=== PATIENT | male | born 1975 | race African-American/Black ===

== ENCOUNTER 2022-10-05 06:05 | Emergency (ER) | payer OTHER ==
[~2022-10-05] VITALS: Ht 167.6 cm; Wt 75.7 kg
[2022-10-05 06:12] VITALS: BP 141/99
--- NOTE | 2022-10-05 06:15 | NUR ---
PT BIBA BLS ER BED 8
--- NOTE | 2022-10-05 06:20 | NUR ---
pt bedside with food. pt soaking feet in tepid water
--- NOTE | 2022-10-05 06:21 | NUR ---
Dr. Gomez examining patient.
--- NOTE | 2022-10-05 06:28 | NUR ---
47 Y/O M presents with bilateral foot pain. feet appear to be blackened and dry due to being homeless pt stated. pt immediately asked for food upon arrival and talks to self. pt denies any NVD, A&Ox2. PMH-unobtainable NKA
--- NOTE | 2022-10-05 06:35 | NUR ---
Dr. Gomez at bedside
[2022-10-05] MEDS ORDERED: NAPR-1704 PO (06:50)
[2022-10-05] MEDS ORDERED: IBUPROFEN 400 MG TAB PO ONE (06:50)
[2022-10-05] MEDS ORDERED: BACI-416 TP (07:31)
[2022-10-05] MEDS ORDERED: BACITRACIN OINT 500 UNITS/GM PKT TP ONE (07:50)
[2022-10-05 08:39] VITALS: BP 119/74
--- NOTE | 2022-10-05 08:41 | NUR ---
Patient discharged with v/s stable. Written and verbal after care instructions given and explained. Patient alert, oriented and verbalized understanding of instructions. Ambulatory with steady gait. All questions addressed prior to discharge. ID band removed. Patient advised to follow up with PMD. Rx of BACITRACIN ZINC, NAROXEN given. Opportunity to ask questions provided and answered.
--- NOTE | 2022-10-05 08:45 | NUR ---
The patient's care was reviewed and supervised by Carmen Nielsen, RN, RN.
== END 2022-10-05 08:59 | disposition home or self-care (01) ==
LOC: MED 06:05
DX: L84 Corns and callosities (principal); K14.5 Plicated tongue; F17.200 Nicotine dependence, unspecified, uncomplicated; Z72.89 Other problems related to lifestyle
CPT/HCPCS: 29515; 99283

== ENCOUNTER 2022-10-05 20:52 | Emergency (ER) | payer OTHER ==
[~2022-10-05] VITALS: Ht 172.7 cm; Wt 77.1 kg
[~2022-10-05 20:52] MED LIST: BACI-416 TP; NAPR-1704 PO
[2022-10-05 20:55] VITALS: BP 112/66
[2022-10-05] MEDS ORDERED: ACETAMINOPHEN EXTRA STRENGTH 500 MG TAB PO ONE (23:10)
--- NOTE | 2022-10-05 23:18 | NUR ---
PT TAKEN TO ER CHAIR
[2022-10-05 23:50] VITALS: BP 112/66
--- NOTE | 2022-10-05 23:50 | NUR ---
Patient discharged with v/s stable. Written and verbal after care instructions given and explained. Patient verbalized understanding. Ambulatory with steady gait. All questions addressed prior to discharge. Advised to follow up with PMD.
== END 2022-10-05 23:50 | disposition home or self-care (01) ==
LOC: MED 20:52
DX: M79.672 Pain in left foot (principal)
CPT/HCPCS: 99283